=== PATIENT | male | born 1950 | race Caucasian/White ===

== ENCOUNTER 2021-08-04 13:47 | Observation (INO) | payer MEDICARE, OTHER ==
[~2021-08-04] VITALS: Ht 177.8 cm; Wt 99.3 kg
[~2021-08-04 13:47] MED LIST: ASPI-611 PO; ATOR10TA87 PO; LISI20TA28 PO; METO-539 PO; NITR0.4T51 SL
[2021-08-04] MEDS ORDERED: diphenhydrAMINE 25mg capsule PO PRN (14:25)
[2021-08-04] MEDS ORDERED: LORazepam 0.5 MG tablet PO PRN (14:25)
[2021-08-04] MEDS: normal saline 1,000 ML IV SCH ×2 (14:25→23:43)
[2021-08-04] MEDS ORDERED: CLOP-32 PO (14:41)
[2021-08-04 14:45] LABS: BASOPHILS # (AUTO) 0.1 X10'3 (0-0.2); EOSINOPHILS # (AUTO) 0.3 X10'3 (0-0.9); EOSINOPHILS % (AUTO) 3.7 % (0-6); HEMATOCRIT 48.6 % (42.0-52.0); HEMOGLOBIN 16.7 g/dl (14.0-17.9); LYMPHOCYTES # (AUTO) 1.6 X10'3 (1.1-4.8); LYMPHOCYTES % (AUTO) 18.1 % (21-51); MEAN CORPUSCULAR HEMOGLOBIN 31.9 PG (27.0-31.0); MEAN CORPUSCULAR HGB CONC 34.4 g/dL (33.0-36.5); MEAN CORPUSCULAR VOLUME 92.8 FL (78-98); MONOCYTES # (AUTO) 0.6 X10'3 (0-0.9); MONOCYTES % (AUTO) 6.3 % (2-12); NEUTROPHILS # (AUTO) 6.2 X10'3 (1.8-7.7); NEUTROPHILS % (AUTO) 70.9 % (42-75); PLATELET COUNT 162 X10'3 (140-440); RED BLOOD COUNT 5.24 X10'6 (4.70-6.10); RED CELL DISTRIBUTION WIDTH 13.9 % (11.5-14.5); WHITE BLOOD COUNT 8.8 X10'3 (4.5-11.0)
[2021-08-04 14:46] VITALS: BP 190/75
[2021-08-04 14:57] LABS: ANION GAP 9 (8-16); BLOOD UREA NITROGEN 17 MG/DL (7-18); BUN/CREATININE RATIO 14.4 (5.4-32.0); CALCIUM 8.4 MG/DL (8.5-10.1); CHLORIDE 108 MMOL/L (99-107); CREATININE 1.18 MG/DL (0.60-1.10); GLUCOSE 110 MG/DL (70-104); POTASSIUM 3.7 MMOL/L (3.5-5.1); SODIUM 143 MMOL/L (135-145); TOTAL CARBON DIOXIDE 25.7 MMOL/L (24-32); eGFR 61 ML/MIN
[2021-08-04 15:00] LABS: APTT 25 SECONDS (22-32)
[2021-08-04] MEDS ORDERED: iohexol 350MG/ML 100ml bottle IV ONE (16:19)
[2021-08-04] MEDS ORDERED: heparin 1,000unit/ml 10ml vial 10 ML ONE (16:19)
[2021-08-04] MEDS ORDERED: LIDOCAINE 1% w/preservative (10 MG/ML) inj. 10mL VIAL ONE ×2 (16:19→16:29)
[2021-08-04] MEDS ORDERED: DOPamine 400mg/D5W 250ml 0 ML IV ONE (16:20)
[2021-08-04] MEDS ORDERED: atropine 0.1mg/ml 10ml syringe ONE (16:20)
[2021-08-04] MEDS ORDERED: phenylephrine 10mg/ml inj. ONE (16:20)
[2021-08-04] MEDS ORDERED: iohexol 350 MG/ML 50ML vial IV ONE (17:38)
--- NOTE | 2021-08-04 17:50 | NUR ---
received report from laboratory sampler.
[2021-08-04 18:00] VITALS: BP 153/73
--- NOTE | 2021-08-04 18:05 | NUR ---
received patient from labor relations officer via stretcher, alert, oriented, not in any kind of distress, tucked patient in, made comfortable. will endorse patient to incoming nurse for continuity of care.
[2021-08-04] MEDS ORDERED: acetaminophen 325mg tablet PO PRN (18:40)
[2021-08-04] MEDS ORDERED: proCHLORperazine 10 MG/2 ml inj IV PRN (18:40)
[2021-08-04] MEDS ORDERED: nitroGLYCERIN 0.4mg SUBLingual tab SL PRN (18:40)
[2021-08-04] MEDS ORDERED: HYDROcodone/acetaminophen 5mg/325mg tablet PO PRN (18:40)
[2021-08-04] MEDS ORDERED: hydrALAZINE 20mg/ml inj. IV PRN (18:40)
[2021-08-04] MEDS ORDERED: pseudoephedrine 30mg tablet PO PRN (18:40)
[2021-08-04] MEDS: DOPamine 400mg/D5W 250ml 250 ML IV SCH (18:40)
[2021-08-04] MEDS ORDERED: HYDROcodone/acetaminophen 10/325mg tab PO PRN (18:40)
[2021-08-04] MEDS ORDERED: atorvastatin 10mg tablet PO SCH (21:00)
[2021-08-04 22:00] VITALS: BP 111/57
[2021-08-05 02:00] VITALS: BP 105/51
[2021-08-05 06:00] VITALS: BP 135/57
--- NOTE | 2021-08-05 06:14 | NUR ---
Problems reprioritized. Patient report given, questions answered & plan of care reviewed with FRANKIE Jones.
[2021-08-05] MEDS ORDERED: aspirin 81mg, enteric-coated 1 TAB TABLET.DR PO SCH (08:00)
[2021-08-05] MEDS ORDERED: clopidogrel 75mg tablet PO SCH (08:00)
[2021-08-05] MEDS ORDERED: lisinopril 10 MG tablet PO SCH (08:00)
[2021-08-05] MEDS ORDERED: metoprolol tartrate 12.5mg (1/2 tablet) PO SCH (08:00)
[2021-08-05] MEDS: DOPamine 400mg/D5W 250ml 250 ML IV SCH (08:06)
[2021-08-05] MEDS: normal saline 1,000 ML IV SCH (10:25)
[2021-08-05 11:00] VITALS: BP 132/66
--- NOTE | 2021-08-05 12:50 | NUR ---
discharge instructions was given and explained to patient prior to discharge. IV access discontinued with cannula tip complete and intact.
--- NOTE | 2021-08-06 13:42 | NUR ---
Case Management DC follow up: Spoke with Patient via telephone.s/p : patient reports:denies any signs and symptoms of infection drainage , or pain at cath site. Denies problems with balance,vision ,drooping of eyelids,and or face. Denies numbness at face or weakness at upper and lower extremities .Denies headache , nausea and or vomiting.Verbalizes understanding of signs and symptoms that warrant 911/ER visit for further evaluation.Verbalizes the staff was nice; however,at times were really too busy to meet his needs.Food trays also served late. Pt acknowledges need to schedule/confirm/keep follow up appt with , and is calling 's office today; denies need for assistance with call.Verbalizes understanding Rx:, why prescribed, and when to take as ordered.
== END 2021-08-05 13:25 | disposition home or self-care (01) ==
LOC: SSTAY O 13:47 → PCU 3S 13:48
PROVIDERS: ADMIT Internal Medicine Interventional Cardiology; ATTEND Internal Medicine Interventional Cardiology
DX: I65.23 Occlusion and stenosis of bilateral carotid arteries (principal); I10 Essential (primary) hypertension; I25.10 Atherosclerotic heart disease of native coronary artery without angina pectoris; Z95.1 Presence of aortocoronary bypass graft; E78.5 Hyperlipidemia, unspecified; F17.210 Nicotine dependence, cigarettes, uncomplicated; Z79.899 Other long term (current) drug therapy
CPT/HCPCS: 36415; 37215; 80048; 85025; 85610; 85730; 93005; C1725; C1760; C1769; C1876; C1884; C1887; C1894; G0378; J1644; J2370; J7030; Q0163; Q9967; A4620; A6258; J0461; J1265